=== PATIENT | male | born 1975 | race Caucasian/White ===

== ENCOUNTER 2021-10-19 10:30 | Emergency (ER) | payer MEDICAID ==
[~2021-10-19] VITALS: Ht 165.1 cm; Wt 68.0 kg
[2021-10-19] MEDS ORDERED: NAPROXEN500 MG PO (13:13)
[2021-10-19] MEDS ORDERED: KEFLEX250 MG PO (13:13)
== END 2021-10-19 13:40 | disposition home or self-care (01) ==
LOC: FER 10:30
DX: S81.031A Puncture wound without foreign body, right knee, initial encounter (principal); Z23 Encounter for immunization; W45.0XXA Nail entering through skin, initial encounter
CPT/HCPCS: 73564; 90471; 90715